=== PATIENT | female | born 1970 | race Caucasian/White ===

== ENCOUNTER 2025-06-04 12:59 | Outpatient (CLI) | payer OTHER ==
--- NOTE | 2025-06-04 13:07 | RADIOLOGY REPORT ---
CLINICAL INFORMATION: 54 years old, Female; PAIN. COMPARISON: None TECHNIQUE: Multisequence multiplanar MRI images of the right elbow were obtained without contrast. FINDINGS: BONES/JOINT: No acute fracture or focal marrow contusion. No significant arthropathy. No significant joint effusion. TENDONS: Moderate tendinosis of the common extensor tendon origin with mild adjacent soft tissue celso a and trace fluid. Mild intrasubstance signal in the common extensor tendon origin, possible ill-def ined interstitial tear measuring up to 0.5 cm in greatest dimension. Origin of the common flexor tend on is intact and otherwise unremarkable. Distal biceps tendon, brachialis tendon, and triceps tendon are intact and otherwise unremarkable. LIGAMENTS: Ulnar collateral ligament is intact. Radial collateral ligament, lateral ulnar collateral ligament, and annular ligament are intact. CUBITAL TUNNEL: Mildly thickened ulnar nerve within the cubital tunnel with mild increased T2 hyperin tense signal, may be seen with ulnar neuritis in the appropriate clinical setting. MUSCLES: Normal muscle bulk. No significant atrophy. No evidence of muscle strain or tear. OTHER: No other significant findings. IMPRESSION: 1. Moderate tendinosis of the common extensor tendon origin with mild adjacent soft tissue edema and trace fluid. Intrasubstance signal in the common extensor tendon, possible ill-defined interstitial t ear measuring up to 0.5 cm in greatest dimension. 2. Mildly thickened ulnar nerve within the cubital tunnel with mild increased T2 hyperintense signal, may be seen with ulnar neuritis in the appropriate clinical setting.
--- NOTE | 2025-06-04 15:06 | RADIOLOGY REPORT ---
CLINICAL INFORMATION: Pain. COMPARISON: None TECHNIQUE: Multisequence multiplanar MRI images of the left elbow were obtained without contrast. FINDINGS: BONES/JOINT: No acute fracture or focal marrow contusion. No significant arthropathy. No significant joint effusion. TENDONS: Mild to moderate tendinosis of the common extensor tendon origin. No tear visualized. Origin of the common flexor tendon is intact and otherwise unremarkable. Distal biceps tendon, brachialis t endon, and triceps tendon are intact and otherwise unremarkable. LIGAMENTS: Ulnar collateral ligament is intact. Radial collateral ligament, lateral ulnar collateral ligament, and annular ligament are intact. CUBITAL TUNNEL: Ulnar nerve is thickened with increased T2 hyperintense signal at the level of the cu bital tunnel, may be seen with ulnar neuritis in the appropriate clinical setting. MUSCLES: Normal muscle bulk. No significant atrophy. No evidence of muscle strain or tear. OTHER: No other significant findings. IMPRESSION: 1. [id number] tendinosis of the common extensor tendon origin. No tear. 2. Thickened ulnar nerve with increased T2 hyperintense signal near the level of the cubital tunnel, may be seen with ulnar neuritis in the appropriate clinical setting.
== END 2025-06-04 23:59 | disposition home or self-care (01) ==
LOC: MRI02 12:59
PROVIDERS: ATTEND Orthopaedic Surgery
DX: M25.822 Other specified joint disorders, left elbow (principal); M25.821 Other specified joint disorders, right elbow; M25.521 Pain in right elbow; M25.522 Pain in left elbow; M77.8 Other enthesopathies, not elsewhere classified; R60.0 Localized edema
CPT/HCPCS: 73221